=== PATIENT | male | born 1965 | race Caucasian/White ===

== ENCOUNTER 2019-06-10 07:18 | Observation (INO) ==
[2019-06-10] MEDS ORDERED: NITROGLYCERIN TOP ONE (07:46)
[2019-06-10] MEDS ORDERED: MORPHINE IV ONE (07:46)
[2019-06-10] MEDS ORDERED: ASPIRIN PO ONE (07:46)
--- NOTE | 2019-06-10 08:05 | Diag Imaging Result Doc PS360 ---
EXAM: CHEST-2 VIEWS HISTORY: cp TECHNIQUE: Two views COMPARISON: None. FINDINGS: The lungs are well expanded. The heart is not enlarged. The vessels are not distended. There are no infiltrates. No pleural effusions. IMPRESSION: No acute abnormality. Electronically signed by Miki Chavarria 06/10/2019 8:03 AM
[2019-06-10] MEDS: ZOFRAN IV ONE ×2 (08:37→08:38)
[2019-06-10 08:47] LABS: BASO# 0.03 X1000 (0.0-0.2); BASO% 0.5 % (0.0-0.8); EOS# 0.09 X1000 (0.0-0.7); EOS% 1.4 % (0.0-10.0); HEMATOCRIT 44.8 % (42.0-52.0); HEMOGLOBIN 15.4 g/dL (14.0-18.0); LYMPH# 1.66 X1000 (1.2-3.4); LYMPH% 26.5 % (20.5-51.1); MCH 32.7 PG (27-31); MCHC 34.4 g/dL (33-37); MCV 95.1 FL (81-99); MONO# 0.41 X1000 (0.11-0.59); MONO% 6.5 % (1.7-9.3); MPV 10.6 FL (7.4-10.4); NEUT# 4.08 X1000 (1.4-6.5); NEUT% 65.1 % (42.2-75.2); PLT 161 X1000 (130-400); RBC 4.71 XMIL (4.7-6.1); RDW 11.7 % (11.5-14.5); WBC 6.27 X1000 (4.8-10.8)
[2019-06-10 08:52] LABS: INR 1.11; PROTIME 14.5 Seconds (11.0-16.0)
[2019-06-10 08:53] LABS: PTT 27.5 Seconds (22.3-41.8)
[2019-06-10 09:09] LABS: AGAP 14; ALB/GLOB RATIO 1.9; ALBUMIN 4.2 g/dL (3.5-5.0); ALKALINE PHOSPHATASE 73 U/L (32-122); BUN 25 mg/dL (8-22); CALCIUM 9.4 mg/dL (8.8-10.2); CHLORIDE 103 mmol/L (98-107); CK PROFILE 71 U/L (24-204); COSMO 283; CREATININE 1.1 mg/dL (0.7-1.2); ESTIMATED GFR > 60; GLUCOSE 123 mg/dL (70-104); GOT 19 U/L (10-34); GPT 35 U/L (10-44); POTASSIUM 3.8 mmol/L (3.5-5.1); SODIUM 139 mmol/L (136-145); TCO2 22 mmol/L (25-35); TOTAL BILIRUBIN 0.21 mg/dL (0.20-1.00); TOTAL PROTEIN 6.4 g/dL (6.3-8.3)
[2019-06-10 09:39] LABS: URINE SOURCE CLEAN CATCH
[2019-06-10 09:46] LABS: BILIRUBIN URINE NEGATIVE (NEGATIVE); BLOOD URINE NEGATIVE (NEGATIVE); COLOR YELLOW; GLUCOSE URINE NEGATIVE (NEGATIVE); KETONE URINE NEGATIVE (NEGATIVE); LEUKOCYTES URINE NEGATIVE (NEGATIVE); NITRITE URINE NEGATIVE (NEGATIVE); PH URINE 6.5; PROTEIN URINE TRACE mg/dL (NEGATIVE); TURBIDITY URINE CLEAR (CLEAR); UROBILINOGEN URINE NORMAL (NORMAL)
[2019-06-10 09:47] LABS: UR EPITHELIAL CELLS <10 /HPF (<10); URINE BACTERIA NEGATIVE /HPF; URINE RBC <10 /HPF (<10); URINE WBC <10 /HPF (<10)
--- NOTE | 2019-06-10 10:26 | EKG Report ---
Test Performed on : 06/10/2019 07:25:16 AM Test Reason : CHEST PAIN Blood Pressure : / mmHG Vent. Rate : 083 BPM Atrial Rate : 083 BPM P-R Int : 138 ms QRS Dur : 072 ms QT Int : 370 ms P-R-T Axes : 065 060 058 degrees QTc Int : 434 ms Normal sinus rhythm. Normal ECG No previous ECGs available Unconfirmed Result
--- NOTE | 2019-06-10 11:08 | PROVIDER DOCUMENTATION ---
This chart was entered by Araseli Hernandez Scribe, acting as scribe for Miguel A Acevedo MD. HPI-Chest Pain - General Chief Complaint: Chest Pain Stated Complaint: CP Time Seen by Provider: 06/10/19 07:45 Source: patient, family () Allergies/Adverse Reactions: Patient Allergies Allergy/AdvReac Type Severity Reaction Status Date / Time No Known Allergies Allergy Verified 06/10/19 08:20 Home Medications: Home Medication List Medication Instructions Recorded Confirmed Last Taken Type Fluticasone Propionate 1 puff IN DAILY 06/10/19 06/10/19 06/08/19 History Montelukast Sodium 10 mg PO DAILY 06/10/19 06/10/19 06/08/19 History - History of Present Illness-CP Nature of Presenting Problem: 54 yom presents to the ed with c/o intermittent left sided chest pain with nausea and sob for 1 month. pt sts pain is worse with exertion and has been worsening since 0300am this morning. pt had a stress test done yesterday and lasted 5 minutes on the treadmill and sts pain since has moved from left to now include the right side of his chest. pt took ibuprofen at home for pain with no improvement but did not take an ASA. Location: reports: other (left anterior) Chest Pain Radiation: reports: no radiation Quality of Pain: reports: pressure Severity in ED: moderate Onset/Duration: other (1 month) Timing: intermittent, getting worse Context/Activities at Onset: reports: light activity Modifying Factors: improves with: rest. worse with: exercise Associated Symptoms: reports: nausea, shortness of breath. denies: diaphoresis, dizziness, fever/chills, vomiting Nitro Today/Relief: no nitro taken today Aspirin Treatment Today: 325 mg x 1, provided by ED Prior Chest Pain/Cardiac Workup: reports: stress test (yesterday but could not complete) Similar Symptoms Previously?: Yes Recently Seen Here or By Another Healthcare Provider: Yes (sees cardiology) Review of Systems - Adult - REVIEW OF SYSTEMS - ADULT Constitutional: denies: chills, fever Eyes: reports: no symptoms reported Ears, Nose, Mouth & Throat: reports: no symptoms reported Cardiovascular: reports: see HPI, chest pain. denies: palpitations, syncope Respiratory: reports: see HPI, shortness of breath. denies: cough, wheezing Gastrointestinal: reports: nausea. denies: abdominal pain, diarrhea, vomiting Genitourinary: reports: no symptoms reported Musculoskeletal: denies: back pain, neck pain Integumentary: reports: no symptoms reported Neurological: denies: dizziness/vertigo, headache/migraines Psychiatric: reports: no symptoms reported Endocrine: reports: no symptoms reported Hematologic/Lymphatic: reports: no symptoms reported Allergic/Immunologic: reports: no symptoms reported All Other Systems: Reviewed and Negative Past History - Adult - PAST MEDICAL HISTORY-ADULT Review of Records: reports: Old Records Reviewed, Nursing Assessment Review, Medications Reviewed, Social history reviewed & non-contributory. Major Childhood Illnesses: reports: denies history Cardiovascular: reports: denies history Respiratory: reports: sleep apnea Gastrointestinal: reports: GERD Genitourinary: reports: denies history Musculoskeletal: reports: denies history Hand Dominance: Right Handed Neurological: reports: denies history Psychiatric: reports: denies history Endocrine/Immune: reports: Diabetes Diabetes Type: Type 2 Other Conditions: reports: denies history - PRIOR SURGERIES/PROCEDURES Surgical/Procedure History: reports: appendectomy, cholecystectomy, tonsillectomy - IMMUNIZATION STATUS Childhood Immunizations: See Nurse Assessment Flu Vaccine: See Nurse Assessment - FAMILY HISTORY Family History: reviewed, not pertinent - SOCIAL HISTORY Smoking: denies Substance Use: denies Living Situation: family Physical Exam-General - PHYSICAL EXAM-ADULT Initial Vital Signs Reviewed: Yes - CONSTITUTIONAL General Appearance: appears well, alert, mild distress - EYES Eyes: PERRL/EOMI, pink conjunctivae - HEAD, EARS, NOSE, MOUTH & THROAT HENMT: normocephalic/atraumatic, moist mucous membranes, dental decay - NECK Neck: non-tender, full range of motion, supple, normal inspection - RESPIRATORY Respiratory: chest non-tender, lungs clear, normal breath sounds - CARDIOVASCULAR Cardiovascular: normal peripheral pulses, regular rate, rhythm, other (sts pain is now intermittent and is across whole chest) - CHEST (BREASTS) Chest/Breast: deferred - GASTROINTESTINAL (ABDOMEN) Abdominal Exam: normal bowel sounds, non tender, soft - LYMPHATIC Lymphatic: no adenopathy - MUSCULOSKELETAL Back Exam: normal inspection, no CVA tenderness, no vertebral tenderness Extremity: normal range of motion, non-tender, normal gait, normal inspection - SKIN Integumentary: normal color, normal turgor, warm/dry - NEUROLOGIC Neurologic: grossly normal - PSYCHIATRIC Psych/Mental Status: normal mood/affect, normal thought content, normal thought process, oriented x 3 - HEART Score HEART Score: History: Highly Suspicious HEART Score: ECG: Normal HEART Score: Age: 45-65 Years HEART Score: Risk Factors for Atherosclerotic Disease: > or = 3 Risk Factors or History of Atherosclerotic Disease HEART Score: Troponin: < or = Normal Limit Total HEART Score:: 5 Progress - PLAN OF CARE/RESULTS Progress/Plan/Lab Results: Vital Signs - 8 hr 06/10/19 07:22 06/10/19 08:00 06/10/19 08:30 Temperature 98.6 F Pulse Rate 86 70 77 Respiratory Rate 22 16 15 Blood Pressure 137/91 133/84 O2 Sat by Pulse Oximetry 97 98 95 06/10/19 08:32 06/10/19 09:00 06/10/19 10:00 Temperature Pulse Rate 61 73 77 Respiratory Rate 16 17 19 Blood Pressure 118/71 99/60 98/73 O2 Sat by Pulse Oximetry 96 95 95 Laboratory Results - last 24 hr 06/10/19 06/10/19 06/10/19 08:30 08:30 08:30 WBC 6.27 RBC 4.71 Hgb 15.4 Hct 44.8 MCV 95.1 MCH 32.7 H MCHC 34.4 RDW Std Deviation 11.7 Plt Count 161 MPV 10.6 H Immature Gran % (Auto) 0.0 Neut % (Auto) 65.1 Lymph % (Auto) 26.5 Harvey % (Auto) 6.5 Eos % (Auto) 1.4 Baso % (Auto) 0.5 Immature Gran # (Auto) 0.00 Neut # (Auto) 4.08 Lymph # (Auto) 1.66 Harvey # (Auto) 0.41 Eos # (Auto) 0.09 Baso # (Auto) 0.03 PT INR PTT (Actin FS) Sodium 139 Potassium 3.8 Chloride 103 Carbon Dioxide 22 L Anion Gap 14 BUN 25 H Creatinine 1.1 Estimated GFR/1.73 m2 > 60 BUN/Creatinine Ratio 23 Glucose 123 H Calculated Osmolality 283 Calcium 9.4 Total Bilirubin 0.21 AST 19 ALT 35 Alkaline Phosphatase 73 Creatine Kinase 71 Troponin T [id number] Pept < 5 L Total Protein 6.4 Albumin 4.2 Globulin 2.2 Albumin/Globulin Ratio 1.9 Lipase Urine Source Urine Color Urine Turbidity Urine pH Ur Specific [place] Urine Protein Ur Glucose (Stick) Ur Ketones (Stick) Urine Blood Urine Nitrite Urine Bilirubin Urobilinogen Dipstick Urine Leukocytes Urine WBC (Auto) Urine RBC (Auto) U Epithel Cells (Auto) Urine Bacteria (Auto) 06/10/19 06/10/19 06/10/19 08:30 08:30 08:30 WBC RBC Hgb Hct MCV MCH MCHC RDW Std Deviation Plt Count MPV Immature Gran % (Auto) Neut % (Auto) Lymph % (Auto) Harvey % (Auto) Eos % (Auto) Baso % (Auto) Immature Gran # (Auto) Neut # (Auto) Lymph # (Auto) Harvey # (Auto) Eos # (Auto) Baso # (Auto) PT 14.5 INR 1.11 PTT (Actin FS) 27.5 Sodium Potassium Chloride Carbon Dioxide Anion Gap BUN Creatinine Estimated GFR/1.73 m2 BUN/Creatinine Ratio Glucose Calculated Osmolality Calcium Total Bilirubin AST ALT Alkaline Phosphatase Creatine Kinase Troponin T < 0.010 [id number] Pept Total Protein Albumin Globulin Albumin/Globulin Ratio Lipase 52 Urine Source Urine Color Urine Turbidity Urine pH Ur Specific [place] Urine Protein Ur Glucose (Stick) Ur Ketones (Stick) Urine Blood Urine Nitrite Urine Bilirubin Urobilinogen Dipstick Urine Leukocytes Urine WBC (Auto) Urine RBC (Auto) U Epithel Cells (Auto) Urine Bacteria (Auto) 06/10/19 09:36 WBC RBC Hgb Hct MCV MCH MCHC RDW Std Deviation Plt Count MPV Immature Gran % (Auto) Neut % (Auto) Lymph % (Auto) Harvey % (Auto) Eos % (Auto) Baso % (Auto) Immature Gran # (Auto) Neut # (Auto) Lymph # (Auto) Harvey # (Auto) Eos # (Auto) Baso # (Auto) PT INR PTT (Actin FS) Sodium Potassium Chloride Carbon Dioxide Anion Gap BUN Creatinine Estimated GFR/1.73 m2 BUN/Creatinine Ratio Glucose Calculated Osmolality Calcium Total Bilirubin AST ALT Alkaline Phosphatase Creatine Kinase Troponin T [id number] Pept Total Protein Albumin Globulin Albumin/Globulin Ratio Lipase Urine Source CLEAN CATCH Urine Color YELLOW Urine Turbidity CLEAR Urine pH 6.5 Ur Specific [place] 1.030 Urine Protein TRACE A Ur Glucose (Stick) NEGATIVE Ur Ketones (Stick) NEGATIVE Urine Blood NEGATIVE Urine Nitrite NEGATIVE Urine Bilirubin NEGATIVE Urobilinogen Dipstick NORMAL Urine Leukocytes NEGATIVE Urine WBC (Auto) <10 Urine RBC (Auto) <10 U Epithel Cells (Auto) <10 Urine Bacteria (Auto) NEGATIVE Orders Category Date Time Status Cardiac Monitoring DIRECTED Care 06/10/19 07:46 Active Oxygen Therapy- ED Nursing DIRECTED Care 06/10/19 07:46 Active Saline Loc NOW Care 06/10/19 07:46 Active CHEST-2 VIEWS [RAD] Stat Exams 06/10/19 07:46 Completed CBC WITH ELECTRONIC DIFF [HEME] Stat Lab 06/10/19 08:30 Completed CK PROFILE [SP CHEM] Stat Lab 06/10/19 08:30 Completed COMPREHENSIVE METABOLIC PANEL [CHEM] Stat Lab 06/10/19 08:30 Completed LIPASE [CHEM] Stat Lab 06/10/19 08:30 Completed PRO B-NATRIURETIC PEPTIDE Stat Lab 06/10/19 08:30 Completed PROTIME WITH INR [COAG] Stat Lab 06/10/19 08:30 Completed PTT [COAG] Stat Lab 06/10/19 08:30 Completed TROPONIN T Stat Lab 06/10/19 08:30 Completed URINALYSIS W/POSS RFLX CULT [URINALYSIS] Stat Lab 06/10/19 09:36 Completed Aspirin Med 06/10/19 07:46 Discontinued 325 mg PO NOW ONE Morphine Med 06/10/19 07:46 Discontinued 4 mg IV NOW ONE Nitroglycerin Med 06/10/19 07:46 Discontinued 1 inch TOP NOW ONE Ondansetron [Zofran] Med 06/10/19 07:46 Discontinued 4 mg IV NOW ONE CP/SOB/Palp >45 yrs of Age Stat Oth 06/10/19 07:46 Ordered EKG [EKG] Stat Ther 06/10/19 07:25 Draft Result Diagrams: 06/10/19 08:30 06/10/19 08:30 - REASSESSMENT Reassessment #1 Time Reassessed: 11:06 Status: improving (CP improved with morphine, NTP. Also givne O2 and ASA) - EKG 1 Time of EKG reading by physician:: 07:25 EKG Read and Signed by:: Miguel A Acevedo EKG Interpretation (*Must complete 3 of following elements*): Normal Rate: 83 Rhythm: nsr [place]: normal QRS: normal WI Interval: normal ST Wave: normal - XRAY 1 XRAY: Bilateral XRAY Study: Chest Impression: See EMR Report (EXAM: CHEST-2 VIEWS HISTORY: cp TECHNIQUE: Two views COMPARISON: None. FINDINGS: The lungs are well expanded. The heart is not enlarged. The vessels are not distended. There are no infiltrates. No pleural effusions. IMPRESSION: No acute abnormality. Electronically signed by Miki Chavarria 06/10/2019 8:03 AM 06/10/19 08 Interpreting Physician: Miki Chavarria MD Dictated Date/Time: 06/10/19 08 cc: Miguel A Acevedo MD; Carmelo Pat MD) - CONSULTS/PCP/HOSPITALIST Notification #1 *Consult/PCP/Hospitalist*: hospitalistRachel Time Discussed: 10:00 (spoke with rachel) Consult Disposition: other (call cardiology) #2 Consult: cardiology dr portillo Time Discussed: 10:58 Reason/Comments: phone consult #3 Consult: rachel Time Discussed: 11:06 Reason/Comments: Admit to [facility] Departure - Departure Date of Disposition Decision: 06/10/19 Time of Disposition Decision: 11:07 DIAGNOSIS: Unstable angina pectoris Type 2 diabetes mellitus, without long-term current use of insulin Qualifiers: Diabetes mellitus complication status: without complication Qualified Code(s): E11.9 - Type 2 diabetes mellitus without complications Disposition: ADMITTED INPATIENT 09 Certified Medical Emergency: Emergent Condition: Stable Referrals and Follow-Ups: Carmelo Pat MD [Primary Care Provider] - - Critical Care Note This patient required my direct & personal management of CC.: No Attestation - Physician/ ISAMAR Attestation Patient care was provided by Advanced Practice Provider:: No The physician spent face to face time with patient:: Yes Advanced Practice Provider documentation review:: Supervising physician onsite and consulted in the evaluation and care of this patient. The physician did have a face to face encounter with the patient. This chart was documented by the indicated scribe, (Araseli Hernandez Scribe) and accurately reflects the services I performed and decisions made by me, Miguel A Acevedo MD, as attested by the provider's signature.
[2019-06-10] MEDS ORDERED: TYLENOL PO PRN (12:28)
[2019-06-10] MEDS ORDERED: ZOFRAN IV PRN (12:28)
[2019-06-10] MEDS: LOVENOX SUBQ SCH (12:48)
[2019-06-10] MEDS ORDERED: TYLENOL PO ONE (20:14)
--- NOTE | 2019-06-10 20:55 | HISTORY AND PHYSICAL ---
PRIMARY CARE PHYSICIAN: Dr. Carmelo Pat. CHIEF COMPLAINT: Chest pain. HISTORY OF PRESENTING ILLNESS: This is a 54-year-old, male, who presents to [facility], with complaints of intermittent chest pain over the past couple of months. States he also has some shortness of breath. He was woken up around 3 a.m. this morning, with the chest pain. Stated it was substernal, did not radiate this morning, but in the past it has radiated to under his left arm and down his left arm. He states this morning, it was sharp and constant. He had a stress test done yesterday, that lasted approximately 5 minutes on the treadmill, and then the test was stopped due to, according to the stress test, his heart rate got a up to a peak of 176, and was read as not having any suggestion of ischemic changes, normalized heart rate during the recovery, no clear evidence of other significant arrhythmias. His first set today of enzymes was negative. The ER physician spoke with Cardiology, who felt that he would need to come in and have a further workup done. He will be admitted for further evaluation and treatment. PAST MEDICAL HISTORY: GERD, sleep apnea, diabetes type 2. PAST SURGICAL HISTORY: Appendectomy cholecystectomy, tonsillectomy. FAMILY HISTORY: Reviewed and noncontributory. SOCIAL HISTORY: He currently lives with family. Denies any tobacco, alcohol, or illicit drug use. ALLERGIES: He has no known drug allergies. HOME MEDICATIONS: Flonase 1 spray nasally daily and montelukast sodium 10 mg p.o. daily. LABORATORY AND DIAGNOSTIC DATA: Showed a white blood cell count of 6.27, hemoglobin 15.4, hematocrit 44.8, platelets 161,000. PT and INR of 14.5 and 1.11. Sodium 139, potassium 3.8, chloride 103, CO2 of 22, BUN of 25, creatinine 1.1, glucose 123. Cardiac enzymes were negative. Lipase of 52. Urinalysis was negative. Chest x-ray showed no acute abnormality. EKG showed normal sinus rhythm at 83. REVIEW OF SYSTEMS: He denied any fever, chills, blurred vision, dizziness. He was positive for chest pain, shortness of breath. Denied any cough, abdominal pain, constipation, diarrhea, burning or hurting with urination. PHYSICAL EXAMINATION: VITAL SIGNS: On arrival, he had a temperature of 98.6 degrees, pulse 86, respirations 22, blood pressure 137/91. GENERAL: This is a 54-year-old, male, who is lying in the bed and answers questions appropriately. HEENT: Normocephalic and atraumatic. Normal ENT inspection. Oropharynx and nares are clear. EYES: Pupils are equal, round, reactive to light and accommodation. Extraocular movements are intact. NECK: Normal inspection. Normal range of motion. LUNGS: Clear to auscultation bilaterally with equal lung expansion and chest wall movement. HEART: Regular rate and rhythm. No murmurs, rubs, or gallops. ABDOMEN: Soft, nontender, nondistended. Bowel sounds are present x4 quadrants. MUSCULOSKELETAL: He has 5/5 strength x4 extremities. NEUROLOGICAL: The cranial nerves 2-12 appear grossly intact. ASSESSMENT: 1. Chest pain. 2. Gastroesophageal reflux disease, history of. 3. Sleep apnea. 4. Diabetes type 2, history of, diet controlled currently. PLAN: He will be admitted to the PVC unit, placed on telemetry, O2 per protocol. We will consult Cardiology, do serial cardiac enzymes q.8 x3, place on Lovenox 40 mg subcutaneous q.24 for DVT prophylaxis. Continue his home medications. Will give him Prilosec 20 mg p.o. daily. Recheck a CBC and BMP in the a.m. Further orders after seen by attending and by quality compliance consultant. Dictated by GENE Herrera for Neftali Morgan MD cc: GENE Herrera MD Gregory S. Cheatham, MD
[2019-06-11 04:48] LABS: AGAP 13; BUN 20 mg/dL (8-22); CALCIUM 8.8 mg/dL (8.8-10.2); CHLORIDE 103 mmol/L (98-107); COSMO 276; ESTIMATED GFR > 60; GLUCOSE 92 mg/dL (70-104); POTASSIUM 4.1 mmol/L (3.5-5.1); SODIUM 137 mmol/L (136-145); TCO2 21 mmol/L (25-35)
[2019-06-11 04:49] LABS: HEMOGLOBIN A1C 5.6 % (4.8-6.0)
[2019-06-11 04:53] LABS: WBC 5.95 X1000 (4.8-10.8)
[2019-06-11 04:54] LABS: HEMATOCRIT 43.1 % (42.0-52.0); MCH 33.1 PG (27-31); MCHC 34.8 g/dL (33-37); MCV 95.1 FL (81-99); RBC 4.53 XMIL (4.7-6.1); RDW 11.7 % (11.5-14.5)
[2019-06-11 04:55] LABS: BASO% 0.3 % (0.0-0.8); EOS% 1.7 % (0.0-10.0); LYMPH# 1.73 X1000 (1.2-3.4); LYMPH% 29.1 % (20.5-51.1); MONO% 6.7 % (1.7-9.3); MPV 10.5 FL (7.4-10.4); NEUT% 62.2 % (42.2-75.2); PLT 160 X1000 (130-400)
--- NOTE | 2019-06-11 06:34 | HISTORY AND PHYSICAL ---
ADDENDUM: The patient seen and examined by me [id number]. All the laboratory, vital signs, and images were reviewed. This patient presented to the emergency department with chest pain on the right side. I do believe it is reproducible. He touched himself at one point, and that was kind of painful. As per the patient, sometimes it is painful with movement. He moves in front of me, and he took some deep breaths and he did not have that type of pain. He had a stress test done yesterday. Cardiology Department has been consulted. I do not believe this is a cardiac type chest pain. He is not a smoker. I will continue with the same management for now. I agree with the nurse practitioner's assessment and plan. cc: Neftali Morgan MD
[2019-06-11] MEDS ORDERED: PRILOSEC PO SCH (07:00)
--- NOTE | 2019-06-11 08:02 | CONSULTATION ---
DATE OF CONSULTATION: 06/10/2019 IMPRESSION: 1. Chest discomfort, predominantly atypical for myocardial ischemia. 2. Exertional shortness of breath. 3. Recent exercise treadmill study performed 06/09/2019 demonstrating nonspecific changes but no definite ischemic changes. 4. Type 2 diabetes mellitus, currently managed with diet. 5. Previous heavy cigarette use in the past. Discontinued approximately 12 years ago. Patient previously smoked 3 packs of cigarettes per day for approximately 24 years. RECOMMENDATIONS: 1. Echocardiography. 2. More in-depth evaluation for possible atherosclerotic coronary disease with Lexiscan sestamibi study. HISTORY: This 54-year-old white male with past history of type 2 diabetes mellitus was admitted through the emergency room for evaluation of chest pain. He relates a 1-year history of significant exertional shortness of breath. Over the past several weeks he has been experiencing nonexertional dull left anterior chest discomfort with some left upper extremity discomfort. Symptoms were quite variable and may last several minutes to over an hour at a time. Symptoms are not exertional. He can identify no precipitating or relieving factors. He recently underwent exercise treadmill study which demonstrated no definite ischemic ST-segment changes with exercise. This was performed yesterday. Today experienced some right parasternal sharp discomfort that seems to be aggravated by movement. He is concerned regarding his significant exertional shortness of breath and came back to the emergency room for evaluation, after which he was admitted. He denies any cough. There has been no orthopnea. There has been no other chest discomfort. He has had occasional brief palpitations. PAST MEDICAL HISTORY: 1. Type 2 diabetes mellitus. 2. Hepatitis C treated with antiviral therapy. 3. History of fatty liver. PAST SURGICAL HISTORY: Includes cholecystectomy, tonsillectomy, and appendectomy. ALLERGIES: No known drug allergies. MEDICATIONS PRIOR TO ADMISSION: As listed. SOCIAL HISTORY: He previously worked as a computer mechanic. He is currently not employed. He quit smoking 12 years ago and previously smoked 3 packs cigarettes per day for approximately 24 years. He does not use alcohol. FAMILY HISTORY: Negative for premature coronary artery disease. REVIEW OF SYSTEMS: Pulmonary: Noncontributory beyond history of present illness. Gastrointestinal: Noncontributory beyond history of present illness. Constitutional: Noncontributory beyond history of present illness. Remainder of review of systems negative/noncontributory beyond history of present illness with 14 total systems reviewed. PHYSICAL EXAMINATION: General: An adult male in no distress on room air. Vital signs: Blood pressure 100/75, heart rate 67, oxygen saturation 96% on room air. HEENT: Extraocular movements appear intact. Mucous membranes are moist. Neck: Supple without jugular venous distention. There are no carotid bruits. Chest: Clear to auscultation bilaterally. Cardiac: Reveals a regular rate and rhythm without appreciable murmur or gallop. Abdomen: Soft. Bowel sounds are normal. Extremities: Without edema. Neurologic: Reveals him to be alert and fully oriented. Speech is fluent. Moves all 4 extremities equally well. Skin: Warm and dry. Psychiatric: Reveals mood to be appropriate. PERTINENT DATA: Twelve lead EKG demonstrates normal sinus rhythm, is within normal limits. LABORATORY DATA: Includes a white blood cell count of 6.27 hematocrit 44.8, hemoglobin 15.4, platelet count 161,000. Sodium 139, potassium 3.8, chloride 103, carbon dioxide 22, BUN 25, creatinine 1.1, glucose 123. Initial troponin T less than 0.01. Followup troponin T less than 0.01. CPK initially 71 with followup CPK 57. cc: Nicholas Anderson MD
[2019-06-11] MEDS ORDERED: LEXISCAN ONE (08:34)
[2019-06-11] MEDS ORDERED: FLONASE NAS SCH (09:00)
[2019-06-11] MEDS ORDERED: SINGULAIR PO SCH (09:00)
[2019-06-11] MEDS: LOVENOX SUBQ SCH (12:01)
--- NOTE | 2019-06-11 15:29 | Diag Imaging Result Document ---
PROCEDURE NAME: MYOCARDIAL PERF SCAN, STR/REST - 06/10/2019 STUDY: Rest/stress Lexiscan myocardial perfusion study. INDICATION: Patient with complaints of chest pain. Diabetes. Coronary heart disease is being evaluated. DESCRIPTION: The patient came into the nuclear laboratory, received resting injection of technetium 99 sestamibi 15.1 mCi. Multiple tomographic views of the cardiac structures were obtained at rest. Subsequently, the patient underwent infusion of Lexiscan 0.4 mg. At peak infusion, injected with technetium 99 sestamibi 44.4 mCi. Multiple tomographic views of the cardiac structures were obtained following completion of the protocol. SUMMARY OF THE ELECTROCARDIOGRAPHIC PORTION OF THE STUDY: Resting ECG shows sinus rhythm, rate 68 beats per minute. Resting blood pressure 135/90. During the protocol, the heart rate increased to 108 beats per minute, blood pressure went up to 149/98. Peak infusion ECG shows sinus tachycardia without any ischemic changes. The patient reported no chest pain, shortness of breath, or palpitations. The ECG showed really no significant changes. Following completion of the test, the heart rate and blood pressure returned back to baseline. In summary, electrocardiographic response to a Lexiscan protocol is normal. SUMMARY OF THE MYOCARDIAL PERFUSION PORTION OF THE STUDY: Poststress tomographic views of the left ventricle showed essentially normal myocardial perfusion. There is no convincing evidence of any ischemic defect. The rest images showed normal perfusion. Polar plots revealed the same. There is essentially normal myocardial perfusion. There is a question of trivial attenuation at the level of the inferior wall in the basal and apical portion of the inferior wall. No ischemia is identified. Gated SPECT shows normal left ventricular systolic function, ejection fraction of 63%, normal ventricular volumes, no wall motion abnormality. Lung/heart ratio is normal. TID is normal. SUMMARY: This study shows: 1. Normal electrocardiographic response to a Lexiscan infusion. 2. Essentially normal poststress myocardial perfusion scan. There is no convincing scintigraphic evidence of pharmacologic-induced myocardial ischemia utilizing the Lexiscan protocol. 3. Normal left ventricular systolic function, ejection fraction is estimated at 63% with normal ventricular volumes, no wall motion abnormality. This study would represent a low risk for ischemic events. cc: MD Nicholas Ross MD
[2019-06-11 16:17] VITALS: BP 112/76
--- NOTE | 2019-06-11 17:12 | ECHO REPORT ---
ORDER DATE: 06/10/2019 INTERPRETING PHYSICIAN: Bryn Cid MD. CLINICAL INDICATIONS: Dyspnea on exertion and chest pain. M-MODE MEASUREMENTS: Left ventricle end diastole: 4.6 cm. Left ventricle end systole: 2.8 cm. Posterior wall: 0.8 cm. Interventricular septum: 0.8 cm. Left atrium: 3.8 cm. SUMMARY OF 2-DIMENSIONAL IMAGIN. The left ventricular function is normal. Ejection fraction is estimated at 68%. There is no wall motion abnormality. 2. The right ventricle appears to be normal. 3. The aortic valve looks normal. Color flow mapping unremarkable. 4. The mitral valve looks normal. Color flow mapping unremarkable. 5. Pulsed wave Doppler of mitral inflow is normal. 6. Tissue Doppler of septal and lateral mitral annulus averages 11 cm. 7. There is no diastolic dysfunction. 8. The tricuspid valve looks normal. Color flow mapping unremarkable. 9. Inferior vena cava did not appear to be dilated. 10.Pulmonic pressure is normal, estimated at 24 to 29 mmHg. 11.The pulmonic valve is unremarkable. 12.There is no pericardial effusion, no mass, and no thrombus. SUMMARY: This echocardiographic study is quite unremarkable. cc: MD Nicholas Ross MD
--- NOTE | 2019-06-12 21:19 | DISCHARGE SUMMARY ---
ADMISSION DATE: 06/10/2019 DISCHARGE DATE: 06/11/2019 DISCHARGE DIAGNOSES: 1. Atypical chest pain. 2. Exertional shortness of breath. 3. Apparently history of diabetes managed with diet, with a hemoglobin A1c of 5.6. 4. Strong history of tobacco use, which he discontinued around 12 years ago, and apparently he smoked for 24 years around 3 packs a day. PROCEDURES PERFORMED: Chest x-ray dated 06/10/2019, impression: No acute abnormality. Echocardiogram dated 06/10/2019, impression: Ejection fraction 68%. No wall motion abnormality. Pulmonary pressure is normal, estimated at 24 to 29 mmHg. Nuclear stress test dated 06/10/2019: In summary, normal EKG response to Lexiscan infusion, essentially normal post-stress myocardial perfusion scan. There is not convincing scintigraphic evidence of pharmacologic-induced myocardial ischemia utilizing the Lexiscan protocol, normal left ventricular systolic function, ejection fraction estimated at 63%, with normal ventricular volumes, no wall motion abnormality. HOSPITAL COURSE: A 54-year-old, male, with a past medical history of GERD, sleep apnea, and apparently diabetes controlled with diet, presented with the chief complaint of intermittent chest pain over the past couple of months, associated with some shortness of breath. Apparently, he was woke up around 3 a.m. on the morning of admission on 06/10/2019, with chest pain, substernal, did not radiate this morning, but in the past it has radiated under the left arm and out to the left arm as well. He states the morning of admission, it was sharp and constant. He actually had a stress test done the day before admission, and they did not see any abnormality, but that was done on the treadmill. He has been admitted now and we repeated a stress test with nuclear medicine and the results were normal, as well as the echocardiogram and a chest x-ray. I started this patient on omeprazole for the possibility of esophagitis, and actually this patient states that he has had esophagitis before. Also, when I was examining this patient in the emergency department, he had a point in his left chest in the lower area that was kind of painful to palpation. So, I will discharge this patient with pain medication as needed as well. I recommended to see a online marketing director to evaluate his pulmonary function test as well. This patient seems to be stable to be discharged home. He is no longer smoking. Follow up with his primary care doctor in 1 week. PHYSICAL EXAMINATION: Vital Signs: Temperature 97.9 degrees, pulse 64, respiratory rate 16, blood pressure 112/76, oxygen saturation 95% on room air. HEENT: Head normocephalic, no trauma. PERRLA. Neck: Supple. No JVD. No masses. Central trachea. Chest: Clear to auscultation. No wheezing. No rales. Abdomen: Soft, nontender, nondistended. No hepatosplenomegaly. Extremities: No edema. No clubbing. No cyanosis. Neurological: The patient is alert and oriented x3. No focal deficits. LABORATORY: WBC 5.9, hemoglobin 15, hematocrit 43.1, platelets 160,000. Sodium 137, potassium 4.1, chloride 103, bicarbonate 21, BUN 20, creatinine 1, glucose 92, calcium 8.8. Troponins negative x3. DISCHARGE MEDICATIONS: 1. Tylenol 650 mg p.o. q.6 hours as needed for fever or mild pain. 2. Fluticasone propionate 1 puff inhaled daily. 3. Montelukast 10 mg p.o. daily. 4. Omeprazole 20 mg p.o. daily for 3 month. 5. Tramadol 50 mg p.o. q.8 hours as needed for pain. TIME SPENT: Time discharging this patient, 20 minutes. cc: Neftali Morgan MD
== END 2019-06-11 17:13 | disposition home or self-care (01) ==
LOC: ED 07:18 → EDIPHOLD 07:18 → 2N 21:58
PROVIDERS: ATTEND Internal Medicine